=== PATIENT | female | born 1990 | race Caucasian/White ===

== ENCOUNTER 2016-10-09 13:01 | Emergency (ER) | payer MEDICARE, BC ==
[2016-10-09] MEDS ORDERED: Acetaminophen TAB* 325 MG PO ONE (14:58)
[2016-10-09] MEDS ORDERED: NS 0.9% 1000 ML* 1,000 ML IV ONE (14:58)
[2016-10-09] MEDS ORDERED: Clindamycin 600 MG IVPREMIX(* 600 MG/50 ML SDV IV ONE (14:58)
[2016-10-09 15:41] LABS: Hematocrit 38 % (35-47); Hemoglobin 13.1 g/dl (12.0-16.0); Mean Corpuscular HGB Conc 35 g/dl (31-36); Mean Corpuscular Hemoglobin 31 pg (27-31); Mean Corpuscular Volume 90 fL (80-97); Mean Platelet Volume 8 um3 (7.4-10.4); Red Blood Count 4.22 10^6/ul (4.0-5.4); Red Cell Distribution Width 12 % (10.5-15); White Blood Count 10.3 10^3/ul (3.5-10.8)
[2016-10-09 15:54] LABS: Albumin 3.8 g/dL (3.2-5.2); BUN/Creatinine Ratio 13.6 (8-20); Calcium 8.5 mg/dL (8.6-10.3); EGFR African American 109.1 (>60); EGFR Non-African American 84.8 (>60); Globulin 2.2 g/dL (2-4); Total Bilirubin 1.2 mg/dL (0.2-1.0)
[2016-10-09 16:06] LABS: Potassium 2.6 mmol/L (3.5-5.0)
[2016-10-09] MEDS ORDERED: Potassium Chlor TAB* 20 MEQ TAB.ER PO ONE (17:14)
[2016-10-09] MEDS ORDERED: KCL 10 MEQ/50 ML IVPREMIX* 10 MEQ/50 ML BAG IV SCH (18:00)
--- NOTE | 2016-10-09 18:44 | ED ---
Ravinder Barber Erika, scribed for Yvon Garcia MD on 10/09/16 at 1533 . Skin Complaint - HPI Summary HPI Summary: Patient is a 26-year-old female presenting to the ED with a CC of possible skin infection. Patient has had an occipital nerve stimulator on the right anterior chest wall for 4 years. She states she had the stimulator re-programmed on 10/07 - a handheld machine is just placed over the stimulator. Since then, pt has had worsening soreness in the area, and developed redness and swelling yesterday. Pt developed a fever yesterday, worse today. She does note some diarrhea earlier this week. Pt denies cough, congestion, SOB, and urinary symptoms. Pt states her normal HR is 70-80 bpm. - History of Current Complaint Chief Complaint: EDFever Time Seen by Provider: 10/09/16 14:31 Stated Complaint: FEVER INFECTION Hx Obtained From: Patient, Family/Chief Procurement Officer Onset/Duration: Started Days Ago, Atraumatic, Worse Since - yesterday Timing: Constant Onset Severity: Mild Current Severity: Moderate Pain Intensity: 8 Pain Scale Used: 0-10 Numeric Skin Location: Chest Character: Swelling, Redness, Painful Alleviating Symptom(s): Nothing Associated Signs & Symptoms: Fever - Additional Pertinent History Primary Care Physician: [id number] - Allergy/Home Medications Allergies/Adverse Reactions: Allergies Allergy/AdvReac Type Severity Reaction Status Date / Time Amoxicillin Allergy Hives Verified 09/22/16 15:11 Cefaclor [From Ceclor] Allergy Swelling Verified 09/22/16 15:11 Cephalosporins Allergy Swelling Verified 09/22/16 15:11 Zolmitriptan [From Zomig] AdvReac Severe CHEST Verified 09/22/16 15:11 TIGHTNESS Home Medications: Home Medications Butorphanol Tartrate 20 mg BOTH NARES DAILY PRN 10/09/16 [History Confirmed ] Gabapentin CAP(*) [Neurontin 300 CAP(*)] 900 mg PO TID 10/09/16 [History Confirmed 10/09/16] Levonorgestrel-Ethinyl Estradi [Carina] 1 tab PO DAILY 10/09/16 [History Confirmed 10/09/16] PMH/Surg Hx/FS Hx/Imm Hx Endocrine/Hematology History: Reports: Hx Thyroid Disease - hypothyroidism, Other Endocrine/Hematological Disorders - Autoimmune retinopathy Cardiovascular History: Reports: Other Cardiovascular Problems/Disorders - endocarditis Respiratory History: Reports: Hx Asthma - When a child. History: Denies: Hx Kidney Stones, Hx Renal Disease Musculoskeletal History: Reports: Other Musculoskeletal History - IN wheelchair today; foot drop Sensory History: Reports: Hx Contacts or Glasses Opthamlomology History: Reports: Hx Contacts or Glasses Neurological History: Reports: Hx Headaches, Hx Migraine Psychiatric History: Reports: Hx Depression, Hx Suicide Attempt - Surgical History Surgery Procedure, Year, and Place: skin graft and revision; occipital neurostimulator; lead revision (neurostimulator). Removal of hardware ( stimulator) October 2013. February 2014- occipital neurostimulator revision in [place] Hx Anesthesia Reactions: No Infectious Disease History: No Infectious Disease History: Denies: Hx Hepatitis, Hx Human Immunodeficiency Virus (HIV), Hx of Known/ Suspected MRSA, Hx Shingles, Hx Tuberculosis, Hx Known/Suspected VRSA, History Other Infectious Disease, Traveled Outside the [place] in Last 30 Days - Family History Known Family History: Positive: Hypertension, Diabetes Negative: Cardiac Disease - Social History Lives: With Family Alcohol Use: Occasionally Hx Substance Use: No Substance Use Type: Reports: None Hx Tobacco Use: No Smoking Status (MU): Never Smoked Tobacco Review of Systems Positive: Fever Negative: Shortness Of Breath, Cough Positive: Diarrhea Negative: dysuria, frequency Skin: Other - redness, swelling, soreness right anterior chest wall All Other Systems Reviewed And Are Negative: Yes Physical Exam Triage Information Reviewed: Yes Vital Signs On Initial Exam: Initial Vitals Temp Pulse Resp BP Pulse Ox 101.9 F 141 18 118/73 96 10/09/16 13:06 10/09/16 13:06 10/09/16 13:06 10/09/16 13:06 10/09/16 13:06 Vital Signs Reviewed: Yes Appearance: Positive: Well-Appearing, No Pain Distress Skin: Positive: Warm, Skin Color Reflects Adequate Perfusion, Dry, Other - Mildly erythematous and tender over her stimulator on the right anterior chest wall Head/Face: Positive: Normal Head/Face Inspection Eyes: Positive: Normal ENT: Positive: Normal ENT inspection Neck: Positive: Supple, Nontender Respiratory/Lung Sounds: Positive: Clear to Auscultation, Breath Sounds Present Cardiovascular: Positive: Tachycardia Abdomen Description: Positive: Nontender, Soft Bowel Sounds: Positive: Present Musculoskeletal: Positive: Normal Neurological: Positive: Normal Psychiatric: Positive: Affect/Mood Appropriate Diagnostics - Vital Signs Vital Signs Temp Pulse Resp BP Pulse Ox 10/09/16 14:01 99.9 F 134 20 124/66 97 10/09/16 13:06 101.9 F 141 18 118/73 96 - Laboratory Lab Results: Lab Results 10/09/16 10/09/16 10/09/16 Range/Units 15:27 15:27 15:27 WBC 10.3 (3.5-10.8) 10^3/ul RBC 4.22 (4.0-5.4) 10^6/ul Hgb 13.1 (12.0-16.0) g/dl Hct 38 (35-47) % MCV 90 (80-97) fL MCH 31 (27-31) pg MCHC 35 (31-36) g/dl RDW 12 (10.5-15) % Plt Count 170 (150-450) 10^3/ul MPV 8 (7.4-10.4) um3 Neut % (Auto) 87.4 H (38-83) % Lymph % (Auto) 7.7 L (25-47) % [place] % (Auto) 4.7 (1-9) % Eos % (Auto) 0.1 (0-6) % Baso % (Auto) 0.1 (0-2) % Absolute Neuts (auto) 9.0 H (1.5-7.7) 10^3/ul Absolute Lymphs (auto) 0.8 L (1.0-4.8) 10^3/ul Absolute Monos (auto) 0.5 (0-0.8) 10^3/ul Absolute Eos (auto) 0 (0-0.6) 10^3/ul Absolute Basos (auto) 0 (0-0.2) 10^3/ul Absolute Nucleated RBC 0.01 10^3/ul Nucleated RBC % 0 Sodium 131 L (133-145) mmol/L Potassium 2.6 L* (3.5-5.0) mmol/L Chloride 99 L (101-111) mmol/L Carbon Dioxide 22 (22-32) mmol/L Anion Gap 10 (2-11) mmol/L BUN 11 (6-24) mg/dL Creatinine 0.81 (0.51-0.95) mg/dL Est GFR ( Amer) 109.1 (>60) Est GFR (Non-Af Amer) 84.8 (>60) BUN/Creatinine Ratio 13.6 (8-20) Glucose 101 H (70-100) mg/dL Lactic Acid 0.8 (0.5-2.0) mmol/L Calcium 8.5 L (8.6-10.3) mg/dL Total Bilirubin 1.20 H (0.2-1.0) mg/dL AST 16 (13-39) U/L ALT 20 (7-52) U/L Alkaline Phosphatase 43 (34-104) U/L Total Protein 6.0 L (6.4-8.9) g/dL Albumin 3.8 (3.2-5.2) g/dL Globulin 2.2 (2-4) g/dL Albumin/Globulin Ratio 1.7 (1-3) Result Diagrams: 10/09/16 15:27 10/09/16 15:27 Lab Statement: Any lab studies that have been ordered have been reviewed, and results considered in the medical decision making process. Re-Evaluation - Re-Evaluation First Eval Re-Evaluation Time: 17:55 Comment: Discussed Dr. Lujan's recommendation for transfer with patient Second Eval Re-Evaluation Time: 18:21 Comment: Patient agrees to transfer. Course/Dx - Course Course Of Treatment: The source of her fever is uncertain, however I must consider the stimulator as she is tender over it and it is mildly erythematous. My recommendation is that she be admitted overnight with IV antibiotics and reassessed in the morning. If it is still uncertain, DEBBIE sterling get involved. She may need to have the stimulator removed and I spoke with Bhupendra Lujan and Harpal here. They both recommended transfer. - Diagnoses Provider Diagnoses: Sepsis - Physician Notifications Discussed Care Of Patient With: Dr. Hare's YAM CURER Jen (Pt's neurosurgeon in [place]) at 17:20 - patient requested we call her neurosurgeon as pt believes that her stimulator is infected. Jen states that they have a low threshold for removing the stimulator if infected. Will consult with hospitalist. Dr. Huff (hospitalist) at 17:27 - Requests Dr. Lujan consult. Will admit if Dr. Lujan will handle the case. Dr. Lujan (neurosurgery) at 17:54 - states he is unable to handle this case at [facility]. recommends transfer. Dr. Rowan ( anesthesiology/pain clinic) at 17:59 - discussed case. Will not be able to remove device if it is infected. Dr. Moser ([facility]) at 18:32 - agrees patient for transfer. Patient must be transferred because Dr. Lujan states he cannot handle the case. Discharge - Discharge Plan Condition: Stable Disposition: TRANS HIGHER LVL OF CARE FAC Referrals: Moe Solomon MD [Primary Care Provider] - The documentation as recorded by the Ravinder tony Erika accurately reflects the service I personally performed and the decisions made by , Yvon Garcia MD.
[2016-10-09 20:05] VITALS: BP 93/51
== END 2016-10-09 20:50 | disposition short-term general hospital (02) ==
LOC: ED 13:01
DX: A41.9 Sepsis, unspecified organism (principal); E03.9 Hypothyroidism, unspecified; M21.379 Foot drop, unspecified foot; Z88.0 Allergy status to penicillin
CPT/HCPCS: 36415; 80053; 83605; 85025; 87040; 96374; 96375; 99284; A9270-GY; J3480

== ENCOUNTER 2019-01-24 16:11 | Emergency (ER) | payer MEDICARE, BC ==
[2019-01-24 17:06] VITALS: BP 152/90
--- NOTE | 2019-01-24 17:48 | ED ---
Upper Extremity Pain - HPI Summary HPI Summary: 28 yr old with right hand pain. onset this afternoon. Hit hand on a fence post between the wheel chair. Pain in right hand over the 2nd metacarpal. She has a bruise and pain that is moderate. - History of Current Complaint Chief Complaint: UCUpperExtremity Stated Complaint: RIGHT HAND INJURY Time Seen by Provider: 01/24/19 17:13 Hx Last Menstrual Period: BCP-no menses - Allergies/Home Medications Allergies/Adverse Reactions: Allergies Allergy/AdvReac Type Severity Reaction Status Date / Time amoxicillin Allergy Hives Verified 07/17/18 09:21 cefaclor [From Ceclor] Allergy Swelling Verified 07/17/18 09:21 Cephalosporins Allergy Swelling Verified 07/17/18 09:21 zolmitriptan [From Zomig] Allergy Chest Verified 07/17/18 09:21 Tightness Home Medications: Home Medications Fremanezumab-Vfrm [Ajovy] 225 mg SQ MONTHLY 01/24/19 [History Confirmed 01/24/19 ] PMH/Surg Hx/FS Hx/Imm Hx Endocrine/Hematology History: Reports: Hx Thyroid Disease - Hypothyroidism, Other Endocrine/Hematological Disorders - Autoimmune retinopathy Denies: Hx Anticoagulant Therapy, Hx Blood Disorders, Hx Blood Transfusions, Hx Bone Marrow Disease, Hx Diabetes, Hx Systemic Lupus Erythematosus, Hx Sickle Cell Disease, Hx Anemia, Hx Unexplained Bleeding Cardiovascular History: Reports: Hx Hypertension, Other Cardiovascular Problems/ Disorders - endocarditis Denies: Hx Aneurysm, Hx Angina, Hx Angioplasty, Hx Auto Implanted Cardiovert Defib, Hx Cardiac Arrest, Hx Cardiomegaly, Hx Congenital Heart Disease, Hx Congestive Heart Failure, Hx Coronary Artery Disease, Hx Deep Vein Thrombosis, Hx Embolism, Hx Hypercholesterolemia, Hx Hypotension, Hx Myocardial Infarction, Hx Pacemaker/ICD, Hx Peripheral Vascular Disease, Hx Rheumatic Fever, Hx Syncope , Hx Valvular Heart Disease Respiratory History: Reports: Hx Asthma Denies: Hx Chronic Bronchitis, Hx Chronic Obstructive Pulmonary Disease (COPD ), Hx Cystic Fibrosis, Hx Lung Cancer, Hx Pleural Effusion, Hx Pneumonia, Hx Pulmonary Edema, Hx Pulmonary Embolism, Hx Seasonal Allergies, Hx Sleep Apnea, Other Respiratory Problems/Disorders GI History: Denies: Hx Cirrhosis, Hx Crohn's Disease, Hx Diverticulosis, Hx Gall Bladder Disease, Hx Gastroesophageal Reflux Disease, Hx Gastrointestinal Bleed, Hx Hiatal Hernia, Hx Irritable Bowel, Hx Jaundice, Hx Obstructive Bowel, Hx Ileostomy, Hx Pyloric Stenosis, Hx Ulcer, Hx Urosepsis, Other GI Disorders History: Denies: Hx Kidney Stones, Hx Renal Disease Musculoskeletal History: Reports: Other Musculoskeletal History - IN wheelchair today; foot drop Sensory History: Reports: Hx Contacts or Glasses Denies: Hx Eye Injury, Hx Eye Prosthesis, Hx Glaucoma, Hx Legally Blind, Hx Macular Degeneration, Hx Vision Problem, Hx Deafness, Hx Hearing Aid, Hx Hearing Problem, Other Sensory Impairments Opthamlomology History: Reports: Hx Contacts or Glasses Denies: Hx Eye Injury, Hx Eye Prosthesis, Hx Glaucoma, Hx Legally Blind, Hx Macular Degeneration, Hx Vision Problem, Other Sensory Impairments Neurological History: Reports: Hx Headaches, Hx Migraine Denies: Hx Dementia, Hx Developmental Delay, Hx Nerve Disease, Hx Seizures, Hx Spinal Cord Injury, Hx Transient Ischemic Attacks (TIA), Other Neuro Impairments/Disorders Psychiatric History: Reports: Hx Depression, Hx Suicide Attempt Denies: Hx Anxiety, Hx Attention Deficit Hyperactivity Disorder, Hx Eating Disorder, Hx Panic Disorder, Hx Post Traumatic Stress Disorder, Hx Inpatient Treatment, Hx Community Mental Health Tx, Hx Schizophrenia, Hx Bipolar Disorder , Hx of Violent Episodes Against Others, Hx Substance Abuse, Other Psychiatric Issues/Disorders - Surgical History Surgery Procedure, Year, and Place: skin graft and revision; occipital neurostimulator; lead revision (neurostimulator). Removal of hardware ( stimulator) October 2013. February 2014- occipital neurostimulator revision in [place] Hx Anesthesia Reactions: No Infectious Disease History: No Infectious Disease History: Denies: Hx Hepatitis, Hx Human Immunodeficiency Virus (HIV), Hx of Known/ Suspected MRSA, Hx Shingles, Hx Tuberculosis, Hx Known/Suspected VRSA, History Other Infectious Disease, Traveled Outside the [place] in Last 30 Days - Family History Known Family History: Positive: Hypertension, Diabetes Negative: Cardiac Disease - Social History Occupation: Disabled Alcohol Use: Rare Hx Substance Use: No Substance Use Type: Reports: None Hx Tobacco Use: No Smoking Status (MU): Never Smoked Tobacco Review of Systems Constitutional: Negative Positive: Other - hand pain right All Other Systems Reviewed And Are Negative: Yes Physical Exam Triage Information Reviewed: Yes Vital Signs On Initial Exam: Initial Vitals Temp Pulse Resp BP Pulse Ox 98.7 F 100 16 152/90 100 01/24/19 17:01 01/24/19 17:01 01/24/19 17:01 01/24/19 17:01 01/24/19 17:01 Vital Signs Reviewed: Yes Appearance: Positive: Well-Appearing, No Pain Distress Skin: Positive: Warm, Skin Color Reflects Adequate Perfusion Head/Face: Positive: Normal Head/Face Inspection Eyes: Positive: EOMI, JENIFFER ENT: Positive: Normal ENT inspection Neck: Positive: Nontender Respiratory/Lung Sounds: Positive: Clear to Auscultation, Breath Sounds Present Cardiovascular: Positive: RRR. Negative: Murmur Abdomen Description: Positive: Nontender. Negative: Distended Musculoskeletal: Positive: Strength/ROM Intact, Other - right hand with STS and bruise over the right 2nd metacarpal. Neurological: Positive: Alert, Oriented to Person Place, Time, Normal Gait, Speech Normal Diagnostics - Vital Signs Vital Signs Temp Pulse Resp BP Pulse Ox 01/24/19 17:01 98.7 F 100 16 152/90 100 - Laboratory Lab Statement: Any lab studies that have been ordered have been reviewed, and results considered in the medical decision making process. - Radiology right hand Radiology Interpretation Completed By: Radiologist - nad Course/Dx - Course Course Of Treatment: 28 yr old with contusion right hand. FU with pMD - Diagnoses Provider Diagnoses: Contusion of right hand Discharge ED - Sign-Out/Discharge Documenting (check all that apply): Patient Departure All imaging exams completed and their final reports reviewed: Yes - Discharge Plan Condition: Good Disposition: HOME Patient Education Materials: Contusion in Adults (ED), Hypertension (ED) Referrals: Moe Solomon MD [Primary Care Provider] - 3 Days - Billing Disposition and Condition Condition: GOOD Disposition: Home
== END 2019-01-24 17:57 | disposition home or self-care (01) ==
LOC: UCCORT 16:11
DX: S60.221A Contusion of right hand, initial encounter (principal); W22.09XA Striking against other stationary object, initial encounter; Y92.9 Unspecified place or not applicable; I10 Essential (primary) hypertension; G43.909 Migraine, unspecified, not intractable, without status migrainosus; Z88.1 Allergy status to other antibiotic agents; Z88.0 Allergy status to penicillin; Z88.8 Allergy status to other drugs, medicaments and biological substances
CPT/HCPCS: 99211; G0463